=== PATIENT | female | born 1975 | race American Indian/Alaskan Native ===

== ENCOUNTER 2017-05-23 10:29 | Inpatient (IN) | payer MEDICARE, MEDICAID ==
[2017-05-18 12:23] VITALS: BMI 23.3
[2017-05-23] MEDS ORDERED: Doxycycline 100 mg Inj ONE (12:16)
[2017-05-23] MEDS ORDERED: Lidocaine 1% Inj (20ml) ONE (12:17)
[2017-05-23] MEDS ORDERED: Lactated Ringer's 1,000 ML IV ONE ×2 (12:47→16:25)
[2017-05-23] MEDS ORDERED: Midazolam 2 MG/2 ML VIAL ONE (12:53)
[2017-05-23] MEDS ORDERED: Propofol 10 mg/ml Inj (20 ML) ONE (12:53)
[2017-05-23] MEDS: Lidocaine 1% w Epi 1:100,000 Inj ONE ×2 (13:01→13:05)
[2017-05-23] MEDS: Bupivacaine HCl 0.25% PF (10 ml) Inj ONE ×2 (13:02→13:05)
[2017-05-23] MEDS ORDERED: HYDROmorphone 0.5 mg/0.5 ml ISec IVP PRN (13:29)
[2017-05-23] MEDS ORDERED: Oxycodone/Acetaminophen 5/325 mg Tab PO PRN (13:33)
--- NOTE | 2017-05-23 18:50 | OP ---
PROCEDURE DATE: 05/23/2017 PREOPERATIVE DIAGNOSIS: Mass of the right angle mandible. POSTOPERATIVE DIAGNOSIS: Mass of the right angle mandible. PROCEDURE PERFORMED: Wide-deep excision of mass right angle of the mandible with adjacent tissue transfer closure. SURGEON: Ganga Ogden MD. ANESTHESIA: General endotracheal. ESTIMATED BLOOD LOSS: About 30 mL. POSTOP CONDITION: Stable. INDICATIONS FOR SURGERY: This is a 42-year-old female with an inflammatory infected mass, right angle mandible which keeps increasing in size at times becomes more painful and wide-deep excision. PROCEDURE: The patient was taken to the operating room, placed in a supine position with the neck extended. The right jaw area was prepped and draped and local anesthesia was infiltrated as IV sedation. Generous elliptical incision was made around the mass. It was dissected free into the muscle and completely removed. Bleeding was controlled using the Bovie, and facial artery which was noted to be bleeding was repaired. The wound was irrigated with copious amounts of saline solution. Generous tissue flaps were raised. Adjacent tissue transfer closure was performed using multiple layers of Monocryl, subcuticular Monocryl, and the glue. The patient tolerated the procedure well and returned to the recovery room in stable condition. Ganga Ogden MD
[2017-05-23 19:02] VITALS: RESP 20
[2017-05-23] MEDS: Lactated Ringer's 1,000 ML IV SCH (19:06)
[2017-05-23] MEDS: Enoxaparin 30 mg Syringe SC SCH (22:33)
[2017-05-24] MEDS: Lactated Ringer's 1,000 ML IV SCH ×2 (04:58→10:30)
[2017-05-24] MEDS ORDERED: Levothyroxine 100 MCG TAB PO SCH (06:30)
[2017-05-24 07:38] LABS: EOS # 0.1 K/uL (0.0-0.7); MONO # 0.6 K/uL (0.0-0.8); NEUT # 2.4 K/uL (1.8-7.0); NRBC % 0.1 % (0.0-2.0)
[2017-05-24 07:42] LABS: BASO % 0.5 % (0.0-2.0); EOS % 2.2 % (0.0-4.0); LYMPH % 48.7 % (20.0-40.0); MEAN CORPUSCULAR HEMOGLOBIN 31.2 pg (27.0-31.0); MEAN CORPUSCULAR HGB CONC 33.2 g/dL (33.0-37.0); MEAN PLATELET VOLUME 8.9 fL (7.2-11.7); MONO % 9.4 % (0.0-10.0); NEUT % 39.2 % (50.0-75.0); RBC 3.45 Mil/uL (3.80-5.20); RED CELL DISTRIBUTION WIDTH 13.1 % (11.5-14.5); WHITE BLOOD COUNT 6.1 K/uL (4.8-10.8)
[2017-05-24 07:46] LABS: HEMOGLOBIN 10.8 g/dL (11.0-16.0)
[2017-05-24 08:32] VITALS: TEMP 98
[2017-05-24 08:33] LABS: ALBUMIN 2.8 g/dL (3.5-5.0)
[2017-05-24 08:35] LABS: AST/SGOT 49 U/L (14-36); GFR AFRICAN-AMERICAN > 60; GFR NON-AFRICAN AMERICAN > 60
[2017-05-24 08:36] LABS: ALT/SGPT 55 U/L (9-52); BLOOD UREA NITROGEN 11 mg/dL (7-17); CALCIUM 7.7 mg/dl (8.6-10.4)
[2017-05-24] MEDS ORDERED: Calcium Carbonate 500 mg Chewable Antacid Tab PO ONE (09:46)
[2017-05-24] MEDS ORDERED: Pantoprazole 40 mg EC Tab PO SCH (10:00)
[2017-05-24] MEDS: Enoxaparin 30 mg Syringe SC SCH (10:17)
[2017-05-24 10:18] VITALS: BP 92/56
--- NOTE | 2017-05-24 12:19 | CT ---
PROCEDURE: CT HEAD WITHOUT CONTRAST. HISTORY: headache, r/o intracranial bleed COMPARISON: None available. TECHNIQUE: Axial computed tomography images were obtained through the head/brain without intravenous contrast. Radiation dose: Total exam DLP = 819.16 mGy-cm. This CT exam was performed using one or more of the following dose reduction techniques: Automated exposure control, adjustment of the mA and/or kV according to patient size, and/or use of iterative reconstruction technique. FINDINGS: HEMORRHAGE: No intracranial hemorrhage. BRAIN: No mass effect or edema. The barboza-white matter differentiation appears intact. Please note that MRI with diffusion imaging is more sensitive in the detection of acute ischemic event. VENTRICLES: No hydrocephalus. CALVARIUM: Unremarkable. PARANASAL SINUSES: Mild mucosal thickening within the left sphenoid sinus. MASTOID AIR CELLS: Unremarkable as visualized. No inflammatory changes. OTHER FINDINGS: None. IMPRESSION: No acute intracranial pathology identified.
--- NOTE | 2017-05-24 12:37 | CP.PCM.PN ---
Subjective - Date & Time of Evaluation Date of Evaluation: 05/24/17 Time of Evaluation: 09:15 - Subjective Subjective: PGY-[address] Bella Patient seen and examined at bedside. No acute events overnight. Patient complains of surgical site pain and managed well with pain medication. Patient denies having fever, chills, shortness of breath, chest pain, nausea, vomiting, or diarrhea. Objective - Vital Signs/Intake and Output Vital Signs (last 24 hours): Temp Pulse Resp BP Pulse Ox 98.0 F 50 L 20 92/56 L 97 05/24/17 07:00 05/24/17 07:00 05/24/17 07:00 05/24/17 10:18 05/24/17 07:00 Intake and Output: 05/24/17 05/24/17 06:59 18:59 Intake Total 740 Balance 740 - Medications Medications: Current Medications Alprazolam (Xanax) 2 mg PO HS [facility] Last Admin: 05/23/17 22:33 Dose: 2 mg Docusate Sodium (Colace) 100 mg PO BID [facility] Last Admin: 05/24/17 10:17 Dose: 100 mg Enoxaparin Sodium (Lovenox) 30 mg SC 1000,2200 [facility] Last Admin: 05/24/17 10:17 Dose: 30 mg Furosemide (Lasix) 40 mg PO DAILY [facility] Last Admin: 05/24/17 10:18 Dose: Not Given Lactated Ringer's (Lactated Ringer's) 1,000 mls @ 100 mls/hr IV .Q10H [facility] Last Admin: 05/24/17 10:30 Dose: Not Given Doxycycline Hyclate 100 mg/ (Sodium Chloride) 100 mls @ 100 mls/hr IVPB Q12H [facility] Last Admin: 05/24/17 01:12 Dose: 100 mls/hr Levothyroxine Sodium (Synthroid) 100 mcg PO DAILY@0630 [facility] Last Admin: 05/24/17 06:25 Dose: 100 mcg Ondansetron HCl (Zofran Inj) 4 mg IVP Q6 PRN PRN Reason: Nausea/Vomiting Last Admin: 05/23/17 19:06 Dose: 4 mg Pantoprazole Sodium (Protonix Ec Tab) 40 mg PO DAILY [facility] Last Admin: 05/24/17 10:17 Dose: 40 mg Tramadol HCl (Ultram) 50 mg PO Q8 PRN PRN Reason: Pain Last Admin: 05/23/17 18:05 Dose: 50 mg - Labs Labs: 05/24/17 07:10 05/24/17 07:10 - Constitutional Appears: Well, Non-toxic, No Acute Distress - Head Exam Head Exam: NORMOCEPHALIC Additional comments: Right mandibular tenderness at surgical site. Dressing clean, dry, intact. No active bleeding appreciated. - Eye Exam Eye Exam: Normal appearance - ENT Exam ENT Exam: Mucous Membranes Moist - Neck Exam Neck Exam: Normal Inspection - Respiratory Exam Respiratory Exam: Clear to Ausculation Bilateral, NORMAL BREATHING PATTERN. absent: Respiratory Distress - Cardiovascular Exam Cardiovascular Exam: REGULAR RHYTHM, +S1, +S2. absent: Murmur - GI/Abdominal Exam GI & Abdominal Exam: Soft, Normal Bowel Sounds. absent: Tenderness - Extremities Exam Extremities Exam: Normal Inspection - Neurological Exam Neurological Exam: Alert, Awake, Oriented x3 - Psychiatric Exam Psychiatric exam: Normal Affect, Normal Mood - Skin Skin Exam: Normal Color, Warm Assessment and Plan - Assessment and Plan (Free Text) Assessment: Mass of the right angle mandible -S/P Wide-deep excision of mass right angle mandible POD#1 -No leukocytosis, afebrile -Patient will be sent home with Tramadol PRN -Patient was instructed to follow up with Dr. Ogden as outpatient Headache -CT Head showed no acute intracranial pathology identified -Over the counter pain medication upon discharge Transaminitis -Instructed patient to follow up PMD for outpatient work up Case discussed with attending Dr. Bella. All management per Dr. Bella
[2017-05-24 15:39] VITALS: PULSE 58; O2SAT 98
== END 2017-05-24 13:58 | disposition home or self-care (01) | DRG 572 ==
LOC: C.SDS 10:29 → C.9S 13:35 → C.3T 18:38
PROVIDERS: ADMIT Surgery; ATTEND Surgery
PROC: 0JB10ZZ Excision of Face Subcutaneous Tissue and Fascia, Open Approach (ICD-10-PCS; principal; 2017-05-23 11:15)
DX: L72.0 Epidermal cyst (principal)

== ENCOUNTER 2017-10-17 16:37 | Emergency (ER) | payer MEDICARE, MEDICAID ==
[2017-10-17 16:37] VITALS: BMI 23.3
--- NOTE | 2017-10-17 18:04 | C.PDOC ---
History Of Present Illness 42 years old female presents to ED with complaints of abscess growth on left cheek. Patients states she has had previous abscess which were treated by I&D. Patient denies any physical complaints. Time Seen by Provider: 10/17/17 18:01 Chief Complaint (Nursing): Abnormal Skin Integrity History Per: Patient History/Exam Limitations: no limitations Onset/Duration Of Symptoms: Days Current Symptoms Are (Timing): Still Present Location Of Injury: Left: Face (Cheek) Quality Of Symptoms: Painful Severity: Moderate Pain Scale Rating Of: 4 Recent travel outside of the [place]: No Past Medical History Reviewed: Historical Data, Nursing Documentation, Vital Signs Vital Signs: Last Vital Signs Temp 98.2 F 10/17/17 18:30 Pulse 88 10/17/17 18:30 Resp 17 10/17/17 18:30 BP 133/72 10/17/17 18:30 Pulse Ox 97 10/17/17 18:30 - Medical History PMH: Anemia, Anxiety, Asthma, Deep Vein Thrombosis, Gastritis, Hiatal Hernia ( REPAIR 3 TIMES), Hypercholesterolemia, Hypothyroidism, Migraine, Multiple Sclerosis, Pulmonary Embolism (2014), Rheumatoid Arthritis, Sleep Apnea (C PAP 12) Comment Only: Personality Disorder (PANIC DIORDER) Surgical History: Endoscopy - [facility] Procedures DRAINAGE OF LEFT AXILLA, OPEN APPROACH (02/02/16) DRAINAGE OF LEFT BREAST, OPEN APPROACH (02/02/16) DRAINAGE OF LEFT EAR SKIN, EXTERNAL APPROACH (02/02/16) EXCISION OF FACE SUBCU/FASCIA, OPEN APPROACH (05/23/17) EXCISION OF LEFT BREAST, OPEN APPROACH (02/02/16) EXCISION OF LEFT EAR SKIN, EXTERNAL APPROACH (02/02/16) EXCISION OF LEFT UPPER ARM SKIN, EXTERNAL APPROACH (02/02/16) EXTRACTION OF CHEST SKIN, EXTERNAL APPROACH (02/02/16) EXTRACTION OF LEFT EAR SKIN, EXTERNAL APPROACH (02/02/16) INCIS VULVA/PERINEUM NEC (02/04/15) INJECT/INFUSE ELECTROLYT (12/30/14) INJECT/INFUSE NEC (07/02/15) LAPAROSCOPIC VERTICAL (SLEEVE) GASTRECTOMY (09/02/14) NON-INVASIVE MECHANICAL VENTILATION (04/15/14) OTHER ESOPHAGOSCOPY (09/02/14) OTHER SKIN & SUBQ I D (07/02/15) PLICATION OF VENA CAVA (05/21/15) RADICAL EXCIS SKIN LES (06/04/15) VENA CAV ANGIOCARDIOGRAM (05/21/15) Family History: States: No Known Family Hx - Social History Hx Tobacco Use: Yes Hx Alcohol Use: No Hx Substance Use: No - Immunization History Hx Tetanus Toxoid Vaccination: Yes Hx Influenza Vaccination: No Hx Pneumococcal Vaccination: No Review Of Systems Skin: Positive for: Other (Abscess on left cheek). Negative for: Rash Neurological: Negative for: Weakness, Numbness Psych: Negative for: Depression, Suicidal ideation Physical Exam - Physical Exam Appears: Non-toxic, Other (Awake and alert) Skin: Other (Well circumscribed abscess on left cheek about 2cm thats fluctuant ) Neurological/Psych: Oriented x3, Normal Speech, Normal Cognition ED Course And Treatment O2 Sat by Pulse Oximetry: 99 (Room air ) Pulse Ox Interpretation: Normal - Incision & Drainage Of Abscess Anesthesia: Bupivicaine 0.25% Prep Used: Betadine Procedure: Incised W/Scalpel Blade#: (11 to make small incision) Medical Decision Making Medical Decision Making: Ordered Wound culture and gram stain. Disposition - Disposition Referrals: [facility] at [facility] [Outside] Disposition: HOME/ ROUTINE Disposition Time: 18:32 Condition: GOOD Additional Instructions: take bactrim as prescribed,return to ED in 2 days for packing removal Instructions: Abscess Incision and Drainage (ED) Forms: [employer] (Bermudian) Print Language: TURKISH - Clinical Impression Clinical Impression: Skin abscess - Scribe Statement The provider has reviewed the documentation as recorded by the Hebertiblinda Torrez All medical record entries made by the Hebertiblinda were at my direction and personally dictated by me. I have reviewed the chart and agree that the record accurately reflects my personal performance of the history, physical exam, medical decision making, and the department course for this patient. I have also personally directed, reviewed, and agree with the discharge instructions and disposition.
--- NOTE | 2017-10-17 18:05 | C.PDOC ---
Time Seen by Provider: 10/17/17 18:01 Chief Complaint (Nursing): Abnormal Skin Integrity Past Medical History Vital Signs: Last Vital Signs Temp 99 F 10/17/17 16:44 Pulse 75 10/17/17 16:44 Resp 18 10/17/17 16:44 BP 104/70 10/17/17 16:44 Pulse Ox 99 10/17/17 16:44 - Medical History PMH: Anemia, Anxiety, Asthma, Deep Vein Thrombosis, Gastritis, Hiatal Hernia ( REPAIR 3 TIMES), Hypercholesterolemia, Hypothyroidism, Migraine, Multiple Sclerosis, Pulmonary Embolism (2014), Rheumatoid Arthritis, Sleep Apnea (C PAP 12) Denies: Diabetes, Hepatitis, Chronic Kidney Disease Comment Only: Personality Disorder (PANIC DIORDER) Surgical History: Endoscopy - [facility] Procedures DRAINAGE OF LEFT AXILLA, OPEN APPROACH (02/02/16) DRAINAGE OF LEFT BREAST, OPEN APPROACH (02/02/16) DRAINAGE OF LEFT EAR SKIN, EXTERNAL APPROACH (02/02/16) EXCISION OF FACE SUBCU/FASCIA, OPEN APPROACH (05/23/17) EXCISION OF LEFT BREAST, OPEN APPROACH (02/02/16) EXCISION OF LEFT EAR SKIN, EXTERNAL APPROACH (02/02/16) EXCISION OF LEFT UPPER ARM SKIN, EXTERNAL APPROACH (02/02/16) EXTRACTION OF CHEST SKIN, EXTERNAL APPROACH (02/02/16) EXTRACTION OF LEFT EAR SKIN, EXTERNAL APPROACH (02/02/16) INCIS VULVA/PERINEUM NEC (02/04/15) INJECT/INFUSE ELECTROLYT (12/30/14) INJECT/INFUSE NEC (07/02/15) LAPAROSCOPIC VERTICAL (SLEEVE) GASTRECTOMY (09/02/14) NON-INVASIVE MECHANICAL VENTILATION (04/15/14) OTHER ESOPHAGOSCOPY (09/02/14) OTHER SKIN & SUBQ I D (07/02/15) PLICATION OF VENA CAVA (05/21/15) RADICAL EXCIS SKIN LES (06/04/15) VENA CAV ANGIOCARDIOGRAM (05/21/15) Family History: States: Unknown Family Hx - Social History Hx Tobacco Use: Yes Hx Alcohol Use: No Hx Substance Use: No - Immunization History Hx Tetanus Toxoid Vaccination: Yes Hx Influenza Vaccination: No Hx Pneumococcal Vaccination: No ED Course And Treatment O2 Sat by Pulse Oximetry: 99 Disposition - Disposition Referrals: [facility] [Outside] Disposition: HOME/ ROUTINE Disposition Time: 18:03 Condition: GOOD Additional Instructions: take bactrim as prescribed,return to ED in 2 days for packing removal Instructions: Abscess Incision and Drainage (ED) Print Language: UKRAINIAN - POA Location Of Wound: L maxilla - Clinical Impression Clinical Impression: Skin abscess
[2017-10-17 18:31] VITALS: BP 133/72; PULSE 88; RESP 17; TEMP 98.2
[2017-10-17 18:32] VITALS: O2SAT 99
== END 2017-10-17 18:30 | disposition home or self-care (01) ==
LOC: C.ER 16:37
DX: L02.01 Cutaneous abscess of face (principal); E03.9 Hypothyroidism, unspecified; E78.00 Pure hypercholesterolemia, unspecified; G35 Multiple sclerosis; M06.9 Rheumatoid arthritis, unspecified; Z87.891 Personal history of nicotine dependence

== ENCOUNTER 2017-10-19 14:51 | Emergency (ER) | payer MEDICARE, MEDICAID ==
[2017-10-19 14:51] VITALS: BMI 23.3
[2017-10-19 15:18] VITALS: TEMP 98.1
--- NOTE | 2017-10-19 15:57 | C.PDOC ---
History Of Present Illness 42 y/o female presents to the ER for packing removal from abscess on the left cheek. Patient reports that she had an I&D on Oct 17, 2016. She states that she is taking the abx Bactrim. She reports that the area has become smaller and is less painful. Time Seen by Provider: 10/19/17 15:21 Chief Complaint (Nursing): Wound Check History Per: Patient History/Exam Limitations: no limitations Onset/Duration Of Symptoms: Hrs Current Symptoms Are (Timing): Still Present Past Medical History Reviewed: Historical Data, Nursing Documentation, Vital Signs Vital Signs: Last Vital Signs Temp 98.1 F 10/19/17 15:11 Pulse 74 10/19/17 16:24 Resp 18 10/19/17 16:24 BP 122/68 10/19/17 16:24 Pulse Ox 100 10/19/17 17:22 - Medical History PMH: Anemia, Anxiety, Asthma, Deep Vein Thrombosis, Gastritis, Hiatal Hernia ( REPAIR 3 TIMES), Hypercholesterolemia, Hypothyroidism, Migraine, Multiple Sclerosis, Pulmonary Embolism (2014), Rheumatoid Arthritis, Sleep Apnea (C PAP 12) Denies: Diabetes, Hepatitis, Chronic Kidney Disease Comment Only: Personality Disorder (PANIC DIORDER) Surgical History: Endoscopy - [facility] Procedures DRAINAGE OF LEFT AXILLA, OPEN APPROACH (02/02/16) DRAINAGE OF LEFT BREAST, OPEN APPROACH (02/02/16) DRAINAGE OF LEFT EAR SKIN, EXTERNAL APPROACH (02/02/16) EXCISION OF FACE SUBCU/FASCIA, OPEN APPROACH (05/23/17) EXCISION OF LEFT BREAST, OPEN APPROACH (02/02/16) EXCISION OF LEFT EAR SKIN, EXTERNAL APPROACH (02/02/16) EXCISION OF LEFT UPPER ARM SKIN, EXTERNAL APPROACH (02/02/16) EXTRACTION OF CHEST SKIN, EXTERNAL APPROACH (02/02/16) EXTRACTION OF LEFT EAR SKIN, EXTERNAL APPROACH (02/02/16) INCIS VULVA/PERINEUM NEC (02/04/15) INJECT/INFUSE ELECTROLYT (12/30/14) INJECT/INFUSE NEC (07/02/15) LAPAROSCOPIC VERTICAL (SLEEVE) GASTRECTOMY (09/02/14) NON-INVASIVE MECHANICAL VENTILATION (04/15/14) OTHER ESOPHAGOSCOPY (09/02/14) OTHER SKIN & SUBQ I D (07/02/15) PLICATION OF VENA CAVA (05/21/15) RADICAL EXCIS SKIN LES (06/04/15) VENA CAV ANGIOCARDIOGRAM (05/21/15) Family History: States: No Known Family Hx - Social History Hx Tobacco Use: Yes Hx Alcohol Use: No Hx Substance Use: No - Immunization History Hx Tetanus Toxoid Vaccination: Yes Hx Influenza Vaccination: No Hx Pneumococcal Vaccination: No Review Of Systems Except As Marked, All Systems Reviewed And Found Negative. Neurological: Negative for: Weakness, Numbness Physical Exam - Physical Exam Appears: Non-toxic, No Acute Distress, Other (comfortable) Skin: Normal Color, Warm, Other ( well healing abscess with packing intact on left cheek, negative for erythema, fluctuance, and induration on left cheek,) Head: Atraumatic, Normacephalic Eye(s): bilateral: Normal Inspection, PERRL Nose: Normal Oral Mucosa: Moist Neck: Supple Chest: Symmetrical Extremity: Normal ROM Neurological/Psych: Oriented x3, Normal Speech, Normal Cognition, Normal Motor, Normal Sensation ED Course And Treatment O2 Sat by Pulse Oximetry: 100 (RA) Pulse Ox Interpretation: Normal Progress Note: Abscess packing on left cheek removed and dressed with gauze. Patient tolerated well. Disposition Counseled Patient/Family Regarding: Diagnosis, Need For Followup - Disposition Referrals: Lizzeth Bella MD [Staff Provider] - Disposition: HOME/ ROUTINE Disposition Time: 16:00 Condition: STABLE Additional Instructions: FOLLOW UP WITH YOUR DOCTOR IN 1-2 DAYS RETURN TO ER IF SYMPTOMS WORSEN Instructions: Acute Wound Care (ED) Forms: [facility] (Kyrgyz) Print Language: ARMENIAN - POA Present On Arrival: None - Clinical Impression Clinical Impression: Encounter for wound re-check, Abscess packing removal - Scribe Statement The provider has reviewed the documentation as recorded by the Scribe Ana Clarke Provider Attestation: All medical record entries made by the Scribe were at my direction and personally dictated by me. I have reviewed the chart and agree that the record accurately reflects my personal performance of the history, physical exam, medical decision making, and the department course for this patient. I have also personally directed, reviewed, and agree with the discharge instructions and disposition.
[2017-10-19 16:25] VITALS: BP 122/68; PULSE 74; RESP 18
[2017-10-19 17:12] VITALS: O2SAT 100
== END 2017-10-19 16:25 | disposition home or self-care (01) ==
LOC: C.ER 14:51
DX: Z51.89 Encounter for other specified aftercare (principal); Z48.00 Encounter for change or removal of nonsurgical wound dressing; E03.9 Hypothyroidism, unspecified; E78.00 Pure hypercholesterolemia, unspecified; M06.9 Rheumatoid arthritis, unspecified; Z87.891 Personal history of nicotine dependence

== ENCOUNTER 2018-01-31 21:15 | Emergency (ER) | payer MEDICARE, MEDICAID ==
[2018-01-31 21:15] VITALS: BMI 23.3
[2018-01-31 21:35] VITALS: BP 115/76; PULSE 71; TEMP 97.9; O2SAT 100
--- NOTE | 2018-01-31 23:01 | C.PDOC ---
History Of Present Illness 42 yo female come in for evaluation of Right finger pain and swelling gradually developed for past few days mostly over Right 4th PIPJ with swelling. Ring noted on finger, admits " unable to remove it". Otherwise, pt denies known trauma or injury, fever, chills, denies deformity, weakness, sensory or vascular deficits to Right hand. Pt admits, hx of frequent " boils in different parts of my body". Ambulate to ED for evaluation, not in any apparent distress. Time Seen by Provider: 01/31/18 22:22 Chief Complaint (Nursing): Finger,Hand,&Wrist History Per: Patient Onset/Duration Of Symptoms: Gradual Past Medical History Reviewed: Historical Data, Nursing Documentation, Vital Signs Vital Signs: Last Vital Signs Temp 97.9 F 01/31/18 21:28 Pulse 71 01/31/18 21:28 Resp 18 01/31/18 21:28 BP 115/76 01/31/18 21:28 Pulse Ox 100 01/31/18 23:02 - Medical History PMH: Anemia, Anxiety, Asthma, Deep Vein Thrombosis, Gastritis, Hiatal Hernia ( REPAIR 3 TIMES), Hypercholesterolemia, Hypothyroidism, Migraine, Multiple Sclerosis, Pulmonary Embolism (2014), Rheumatoid Arthritis, Sleep Apnea (C PAP 12) Denies: Diabetes, Hepatitis, Chronic Kidney Disease Comment Only: Personality Disorder (PANIC DIORDER) Surgical History: Endoscopy - [facility] Procedures DRAINAGE OF LEFT AXILLA, OPEN APPROACH (02/02/16) DRAINAGE OF LEFT BREAST, OPEN APPROACH (02/02/16) DRAINAGE OF LEFT EAR SKIN, EXTERNAL APPROACH (02/02/16) EXCISION OF FACE SUBCU/FASCIA, OPEN APPROACH (05/23/17) EXCISION OF LEFT BREAST, OPEN APPROACH (02/02/16) EXCISION OF LEFT EAR SKIN, EXTERNAL APPROACH (02/02/16) EXCISION OF LEFT UPPER ARM SKIN, EXTERNAL APPROACH (02/02/16) EXTRACTION OF CHEST SKIN, EXTERNAL APPROACH (02/02/16) EXTRACTION OF LEFT EAR SKIN, EXTERNAL APPROACH (02/02/16) INCIS VULVA/PERINEUM NEC (02/04/15) INJECT/INFUSE ELECTROLYT (12/30/14) INJECT/INFUSE NEC (07/02/15) LAPAROSCOPIC VERTICAL (SLEEVE) GASTRECTOMY (09/02/14) NON-INVASIVE MECHANICAL VENTILATION (04/15/14) OTHER ESOPHAGOSCOPY (09/02/14) OTHER SKIN & SUBQ I D (07/02/15) PLICATION OF VENA CAVA (05/21/15) RADICAL EXCIS SKIN LES (06/04/15) VENA CAV ANGIOCARDIOGRAM (05/21/15) Family History: States: Unknown Family Hx - Social History Hx Tobacco Use: Yes Hx Alcohol Use: No Hx Substance Use: No - Immunization History Hx Tetanus Toxoid Vaccination: Yes Hx Influenza Vaccination: No Hx Pneumococcal Vaccination: No Review Of Systems Except As Marked, All Systems Reviewed And Found Negative. Constitutional: Negative for: Fever, Chills ENT: Negative for: Throat Pain Respiratory: Negative for: Cough Gastrointestinal: Negative for: Nausea, Vomiting, Abdominal Pain, Diarrhea Musculoskeletal: Positive for: Hand Pain Skin: Positive for: Lesions Neurological: Negative for: Weakness, Numbness Physical Exam - Physical Exam Appears: Well, Non-toxic, No Acute Distress Skin: Normal Color, Warm Head: Normacephalic Eye(s): bilateral: PERRL Extremity: Normal ROM (FAROM of Right hand, no neurovascular deficits.), Tenderness (Right 4th PIPJ with small tender mass, mild eyrthema. Ring.), Capillary Refill (less than 2sec to Right hand), No Deformity Neurological/Psych: Oriented x3, Normal Speech, Normal Motor, Normal Sensation, Normal Reflexes ED Course And Treatment O2 Sat by Pulse Oximetry: 100 Progress Note: RIng removed w/assistance of ring-marble cutter operator, pt tolerated with difficulty. On re-eval, pt is afebrile, hemodynamicaly stable. Right hand : after ring completely removed, mod edema over proximal Right 4th phalanx extend up to Right 4th PIPJ. FAROM, no neurovascular deficsit distally. Pt advised on course of ds. ref. to F/u with PMD in 1-2 days for re-evaluation. return to ED if any worsening or new changes. Disposition Counseled Patient/Family Regarding: Diagnosis, Need For Followup - Disposition Referrals: Lizzeth Bella MD [Staff Provider] - Disposition: HOME/ ROUTINE Disposition Time: 23:02 Condition: STABLE Additional Instructions: Keep hand elevated ice take Ibuprofen as need for pain Follow up with PMD in 2-3 days for re-evaluation. return if any new changes. Instructions: Finger Sprain (DC), Removal of Foreign Body in Skin Forms: [employer] (Gabonese) - Clinical Impression Clinical Impression: Finger swelling
[2018-02-01 00:56] VITALS: RESP 20
== END 2018-02-01 00:55 | disposition home or self-care (01) ==
LOC: C.ER 21:15
DX: M79.89 Other specified soft tissue disorders (principal)

== ENCOUNTER 2018-11-27 10:20 | Emergency (ER) | payer MEDICAID, MEDICARE, OTHER ==
[2018-11-27 10:20] VITALS: BMI 27.1
[2018-11-27 10:22] VITALS: TEMP 98.6
[2018-11-27] MEDS ORDERED: cefTRIAXone (Rocephin) 250 mg Inj IM STA (12:23)
[2018-11-27] MEDS ORDERED: Emtricitabine-Tenofovir 200 mg-300 mg Tab PO STA (12:23)
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
[2018-11-27 14:46] VITALS: BP 93/58; PULSE 63; RESP 18
[2018-11-27 18:32] VITALS: O2SAT 100
[2018-11-28] MEDS ORDERED: Emtricitabine-Tenofovir 200 mg-300 mg Tab PO NR (12:30)
== END 2018-11-27 14:46 | disposition home or self-care (01) ==
LOC: C.ER 10:20
DX: T76.21XA Adult sexual abuse, suspected, initial encounter (principal)
CPT/HCPCS: 96372; 99285; J0696